=== PATIENT | female | born 1935 | race Caucasian/White ===

== ENCOUNTER → 2016-12-19 | Outpatient (CLI) | payer MEDICARE, BC ==
[2016-12-19 12:39] LABS: BILIRUBIN URINE NEGATIVE (NEGATIVE); BLOOD URINE NEGATIVE /UL (NEGATIVE); COLOR URINE YELLOW (YELLOW); GLUCOSE URINE NEGATIVE (NEGATIVE); KETONE URINE NEGATIVE (NEGATIVE); LEUKOCYTES URINE NEGATIVE /UL (NEGATIVE); NITRITE URINE NEGATIVE (NEGATIVE); PROTEIN URINE NEGATIVE (NEGATIVE); TURBIDITY URINE CLEAR (CLEAR); UROBILINOGEN URINE NORMAL (NORMAL)
== END ==
LOC: LHAL 12:20
PROVIDERS: Family Medicine
DX: N39.0 Urinary tract infection, site not specified (principal)

== ENCOUNTER → 2017-04-03 | Outpatient (CLI) | payer MEDICARE, BC ==
[2017-04-03 10:31] LABS: ANION GAP 11.3 (10.0-19.0); CALCIUM 8.5 mg/dL (8.5-10.5); POTASSIUM 4.3 mMol/L (3.7-5.1)
== END ==
LOC: LHAL 04-02 14:55
PROVIDERS: Internal Medicine Interventional Cardiology
DX: I10 Essential (primary) hypertension (principal)

== ENCOUNTER 2017-04-28 09:04 | Emergency (ER) | payer MEDICARE, BC ==
--- NOTE | ~2017-04-28 | ER ---
[facility] AGE[facility] 82 Y [address] ROOM: [place] [address] LOCATION: [facility] ADMIT DATE: 04/28/2017 ER/Outpatient Report DISCHARGE DATE: 04/28/2017 FAMILY PHYSICIAN: Physician, Unknown ATTENDING PHYSICIAN: Carlyle Lynn Time of Arrival: 903. Time of Evaluation: 904. CHIEF COMPLAINT: Back pain. HISTORY OF PRESENT ILLNESS: The patient is an 82-year-old female, who presents to the emergency department today with chief complaint of back pain. The patient has a long history of back pain over the past five years. She had a fall at that time. She got some compression fracture. She has episodes of back pain ever since. This pain she woke up with sharp type pain in the lower back, it is 10/10 maximum, is currently 4/10 in severity. She was given fentanyl en route. She is having troubles walking. PAST MEDICAL HISTORY: Anxiety, chronic back pain, arthritis, hearing loss, irregular heart rhythm, pneumonia, obstructive sleep apnea, uterine cancer. PAST SURGICAL HISTORY: Hysterectomy. FAMILY HISTORY: Cancer, diabetes mellitus, heart disease. SOCIAL HISTORY: The patient denies any tobacco use. Denies any alcohol or illicit drug use. ALLERGIES: TO STATINS. MEDICATIONS: Please see list. PRIMARY CARE DOCTOR: Zulema Gonzalez MD REVIEW OF SYSTEMS: All systems are reviewed by myself and are negative with the exception of PATIENT'S NAME: [facility] AGE: 82 Y [address] ROOM: [place] [address] LOCATION: [facility] ADMIT DATE: 04/28/2017 ER/Outpatient Report DISCHARGE DATE: 04/28/2017 FAMILY PHYSICIAN: Physician, Unknown ATTENDING PHYSICIAN: Carlyle Lynn those discussed in HPI and past medical history. PHYSICAL EXAMINATION: VITAL SIGNS: Weight 104.3 kg. Blood pressure 151/67, pulse 79, respiratory rate 18, temperature 98.3, oxygen saturation 95% on room air. GENERAL: The patient is an 82-year-old female, who appears stated age, in no acute distress. HEENT: Head: Normocephalic, atraumatic. Pupils are equal, round, and reactive to light. NECK: Supple. There is no nuchal rigidity. CARDIOVASCULAR: Regular rate and rhythm. LUNGS: Clear to auscultation bilaterally. No wheezes, rales, or rhonchi. ABDOMEN: Soft, nontender, and nondistended. No rebound, rigidity, or guarding. MUSCULOSKELETAL: The patient has bilateral paraspinal musculature tenderness to palpation. SKIN: Warm and dry. No rashes or lesions noted. LABORATORY DATA AND X-RAYS: CT scan of the L-spine shows chronic stable changes. There is moderate compression fracture at L1, which is stable. CT scan of the abdomen and pelvis shows no evidence of renal collection system obstruction. There is diverticulosis without itis. CBC is normal. CMP is normal. LFT is normal. Urinalysis normal. IMPRESSION: 1. [id number] lumbar back pain with history of moderate compression fracture. 2. Initial visit. EMERGENCY DEPARTMENT COURSE: The patient is brought back to the examination room. Seen and evaluated by myself. IV is established. Laboratory analysis and imaging are obtained as described above. The patient is given 2.5 mg of Valium IV x2 as well as 0.5 mg of Dilaudid IV with significant improvement in the patient's symptoms. She denies any loss of bowel or bladder. No saddle anesthesia. She does ambulate in the emergency department. Here, she does report that she feels much improved. I have discussed return to care instructions including worsening symptoms or any concerns to the emergency department as soon as possible. The patient is agreeable, sounds agreeable without further questions at the time of disposition. The patient is discharged to home in good condition. PATIENT'S NAME: JACLYN MORALES [facility] AGE: 82 Y [address] ROOM: [place], [place] [address] LOCATION: [facility] ADMIT DATE: 04/28/2017 ER/Outpatient Report DISCHARGE DATE: 04/28/2017 FAMILY PHYSICIAN: Physician, Unknown ATTENDING PHYSICIAN: Carlyle Lynn DO KJR/sommer /[id number] d: 04/28/17 1931 t: 04/29/17 0840, OUTPATIENT REPORT
[2017-04-28 09:29] LABS: BASOPHIL # 0.1 K/uL (0.0-0.2); BASOPHIL % 0.9 %; EOSINOPHIL # 0.1 K/uL (0.0-0.5); EOSINOPHIL % 1.6 %; HEMATOCRIT 39.7 % (30.0-46.0); HEMOGLOBIN 12.7 g/dL (10.0-15.0); IMMATURE GRANULOCYTE % 0.4 %; LYMPHOCYTE # 1.7 K/uL (0.8-4.0); LYMPHOCYTE % 29.2 %; MCH 29.3 pg (27.0-34.0); MCV 91.5 fl (83.0-98.0); MONOCYTE # 0.7 K/uL (0.0-1.0); MONOCYTE % 12.8 %; MPV 9.2 fl (9.4-12.4); NEUTROPHIL # (ANC) 3.2 K/uL (1.8-7.8); NEUTROPHIL % 55.1 %; NRBC % 0 /100WBC (0-0.00); PLATELET COUNT 226 K/uL (150-450); RBC 4.34 M/uL (3.00-5.00); RDW-CV 13.9 % (11.9-14.6); WBC 5.7 K/uL (4.0-11.0)
[2017-04-28 09:46] LABS: ALBUMIN 3.3 gm/dL (3.5-5.0); ANION GAP 10.8 (10.0-19.0); CALCIUM 8.7 mg/dL (8.5-10.5); CREATININE 1.1 mg/dL (0.5-1.1); POTASSIUM 3.8 mMol/L (3.7-5.1); TOTAL BILIRUBIN 0.4 mg/dL (0.0-1.5); TOTAL PROTEIN 7.1 g/dL (6.0-8.4)
[2017-04-28 10:47] LABS: BILIRUBIN URINE NEGATIVE (NEGATIVE); BLOOD URINE NEGATIVE /UL (NEGATIVE); COLOR URINE YELLOW (YELLOW); GLUCOSE URINE NEGATIVE (NEGATIVE); KETONE URINE NEGATIVE (NEGATIVE); LEUKOCYTES URINE NEGATIVE /UL (NEGATIVE); NITRITE URINE NEGATIVE (NEGATIVE); PROTEIN URINE NEGATIVE (NEGATIVE); TURBIDITY URINE CLEAR (CLEAR); UROBILINOGEN URINE NORMAL (NORMAL)
== END 2017-04-28 11:53 | disposition disaster alternative care site (69) ==
LOC: GMED 09:04
PROVIDERS: Emergency Medicine
DX: M54.5 Low back pain (principal); G89.29 Other chronic pain; F41.9 Anxiety disorder, unspecified; M19.90 Unspecified osteoarthritis, unspecified site; G47.33 Obstructive sleep apnea (adult) (pediatric); I10 Essential (primary) hypertension; Z85.42 Personal history of malignant neoplasm of other parts of uterus; Z88.8 Allergy status to other drugs, medicaments and biological substances; Z79.01 Long term (current) use of anticoagulants; Z79.2 Long term (current) use of antibiotics; Z79.891 Long term (current) use of opiate analgesic; Z79.899 Other long term (current) drug therapy
CPT/HCPCS: J1170; J3010; J3360

== ENCOUNTER → 2017-04-28 | Outpatient (CLI) | payer MEDICARE, BC | END | disposition disaster alternative care site (69) | LOC: GAMB 08:38 | DX: M54.9 Dorsalgia, unspecified (principal); Z79.891 Long term (current) use of opiate analgesic; Z88.5 Allergy status to narcotic agent | CPT/HCPCS: A0425; A0427 ==